=== PATIENT | male | born 1970 | race Caucasian/White ===

== ENCOUNTER 2017-02-15 14:28 | Emergency (ER) | payer SELFPAY ==
[~2017-02-15] VITALS: Ht 157.5 cm; Wt 64.0 kg
[2017-02-15 15:13] VITALS: BP 125/69
[2017-02-15 16:00] LABS: BASOPHILS % 1.1 % (0.0-2.0); CHLORIDE 108 mEq/L (98-107); EOSINOPHILS % 1.6 % (0.0-5.0); HEMATOCRIT. 42.6 % (42.0-52.0); HEMOGLOBIN. 14.6 g/dL (14.0-18.0); LYMPHOCYTES % 39.1 % (20.0-50.0); MEAN CORPUSCULAR HEMOGLOBIN 30.1 pg (28.0-32.0); MEAN CORPUSCULAR VOLUME 87.9 fL (80.0-94.0); MEAN PLATELET VOLUME 7.4 fl (7.4-10.4); NEUTROPHILS % 51.2 % (40.0-76.0); PLATELET 314 x1000/uL (130-400); RED BLOOD CELL COUNT 4.84 mill/uL (4.7-6.1)
[2017-02-15 16:05] LABS: CARBON DIOXIDE 25 mEq/L (21-32); ETHANOL BLOOD 287 mg/dL
[2017-02-15 16:07] LABS: PROTHROMBIN TIME 10.7 sec (9.4-11.6)
[2017-02-15 16:11] LABS: TROPONIN I < 0.02 ng/mL (0.00-0.04)
== END 2017-02-15 15:45 | disposition left against medical advice (07) ==
LOC: ER 14:28
DX: F10.20 Alcohol dependence, uncomplicated (principal); R41.82 Altered mental status, unspecified; Y90.8 Blood alcohol level of 240 mg/100 ml or more
CPT/HCPCS: 36415; 80053; 83880; 84484; 85025; 85610; 99285; G0482; Z7610